=== PATIENT | male | born 1990 | race Caucasian/White ===

== ENCOUNTER 2016-07-24 09:12 | Emergency (ER) | payer OTHER, BC ==
[~2016-07-24] VITALS: Ht 182.9 cm; Wt 140.9 kg
[~2016-07-24 09:12] MED LIST: BACTRIM,SEPT1 TABLET PO; BENADRYL50 MG PO; CITRATE OF MAG296 ML PO; EPIPEN ADU0.3 MG/0.3 IM; KEFLEX500 MG PO; MULTIVITAMIN1 EAC2 PO; NOHOMEMEDS; ONDANSETRON HCL8 MG PO; PEPCID20 MG PO; PERCOCET 5/31 TABLET PO; PREDNISONE20 MG PO
[2016-07-24 10:29] VITALS: BP 146/91
[2016-07-24] MEDS ORDERED: NAPROXEN500 MG PO (11:14)
== END 2016-07-24 11:36 | disposition home or self-care (01) ==
LOC: EME → EDBD 09:12 → EME 09:12
DX: M94.0 Chondrocostal junction syndrome [Tietze] (principal)
CPT/HCPCS: 71020; 93005; 99281; 99283

== ENCOUNTER 2016-12-02 23:01 | Emergency (ER) | payer BC ==
[~2016-12-02] VITALS: Ht 208.3 cm; Wt 140.9 kg
[~2016-12-02 23:01] MED LIST changes: +NAPROXEN500 MG PO
[2016-12-02 23:07] VITALS: BP 133/73
[2016-12-03] MEDS ORDERED: NAPROSYN500 MG PO (00:28)
== END 2016-12-03 00:59 | disposition home or self-care (01) ==
LOC: EME 23:01
DX: M25.561 Pain in right knee (principal)
CPT/HCPCS: 73564; 99281; 99284

== ENCOUNTER 2017-11-02 19:14 | Emergency (ER) | payer BC ==
[~2017-11-02] VITALS: Ht 175.3 cm; Wt 146.9 kg
[~2017-11-02 19:14] MED LIST changes: +NAPROSYN500 MG PO
[2017-11-02 19:59] LABS: BASOPHIL (%) 0.7 % (0-1); BASOPHIL COUNT 0.1 K/uL (0-0.1); EOSINOPHIL (%) 2.6 % (0-5); EOSINOPHIL COUNT 0.2 K/uL (0-0.3); HEMATOCRIT 45.4 % (38.0-50.0); HEMOGLOBIN 15.8 G/DL (12.5-16.6); IMMATURE GRANULOCYTE (%) 0.3 % (0.0-0.7); LYMPHOCYTE (%) 34.4 % (15-42); LYMPHOCYTE COUNT 3.1 K/uL (1.0-2.8); MCH 28.6 PG (29.0-34.0); MCHC 34.8 G/DL (30.0-36.0); MCV 82.1 FL (86-99); MONOCYTE COUNT 0.6 K/uL (0-0.8); NEUTROPHIL COUNT 4.9 K/uL (1.8-6.4); PLATELET COUNT 285 K/uL (156-360); RBC DIS.WIDTH-CV 13.2 % (11.8-14.6); RBC DIS.WIDTH-SD 38.8 % (39-53); RED BLOOD COUNT 5.53 M/uL (4.00-5.50)
[2017-11-02 20:08] LABS: ALBUMIN 4.6 g/dL (3.2-4.8); CHLORIDE 106 mEq/L (99-109); SODIUM 142 mEq/L (136-147)
[2017-11-02 20:10] LABS: GLUCOSE 82 mg/dL (70-99)
[2017-11-02 20:11] LABS: TOTAL PROTEIN 7.6 g/dL (6.4-8.3)
[2017-11-02 20:12] LABS: TOTAL BILIRUBIN 1.8 mg/dL (0.0-1.0)
[2017-11-02 20:14] LABS: ALKALINE PHOSPHATASE 88 IU/L (3-129); CREATININE 0.8 mg/dL (0.6-1.3); GFR ESTIMATE (CALCULATED) > 59 mL/min/ (58.99-99999)
[2017-11-02 20:15] LABS: UREA NITROGEN (BUN) 13 mg/dL (9-23)
[2017-11-02 20:16] LABS: AST (GOT) 21 IU/L (2-34); DIRECT BILIRUBIN 0.5 mg/dL (0.0-0.3)
[2017-11-02 20:17] LABS: ALT (GPT) 29 IU/L (3-49)
[2017-11-02 20:18] LABS: LIPASE 15 U/L (1.0-51.0)
[2017-11-02 20:55] LABS: APPEARANCE SL.HAZY ((CLEAR)); BILIRUBIN NEGATIVE; BLOOD NEGATIVE; COLOR YELLOW ((YELLOW)); GLUCOSE (STRIP) NEGATIVE; KETONES NEGATIVE; LEUKOCYTES NEGATIVE; NITRITE NEGATIVE; PROTEIN (STRIP) 30; SPECIFIC GRAVITY 1.026 (1.000-1.030); UROBILINOGEN 0.2 MG/DL (0.2-1.0)
[2017-11-02 21:44] LABS: BACTERIA NONE SEEN /HPF; EPITHELIAL CELLS NONE SEEN /HPF; MUCUS 3+ /LPF; RED BLOOD CELLS 0-5 /HPF (0-5); WHITE BLOOD CELLS 0-5 /HPF (0-5)
[2017-11-03] MEDS ORDERED: LEXAPRO10 MG PO (01:30)
[2017-11-03] MEDS ORDERED: ONE DAILY MULT1 EACH PO (01:31)
[2017-11-03] MEDS ORDERED: FISH OIL 1,0001 EAC7 PO (01:32)
[2017-11-03] MEDS ORDERED: PROAIR HFA8.5 GM IH (01:33)
[2017-11-03] MEDS ORDERED: PROMETHAZINE HC25 M1 PO (02:45)
[2017-11-03] MEDS ORDERED: PHENERGAN25 MG PR (02:45)
[2017-11-03] MEDS ORDERED: BENTYL20 MG PO (02:45)
[2017-11-03 03:18] VITALS: BP 103/51
== END 2017-11-03 03:18 | disposition home or self-care (01) ==
LOC: EME 19:14
PROVIDERS: Physician Assistant
DX: E80.7 Disorder of bilirubin metabolism, unspecified (principal); R11.2 Nausea with vomiting, unspecified; R10.11 Right upper quadrant pain; K76.0 Fatty (change of) liver, not elsewhere classified; E66.01 Morbid (severe) obesity due to excess calories; Z68.42 Body mass index [BMI] 45.0-49.9, adult; J45.909 Unspecified asthma, uncomplicated; Z87.19 Personal history of other diseases of the digestive system; Z88.8 Allergy status to other drugs, medicaments and biological substances
CPT/HCPCS: 74176; 76705; 80048; 80076; 81003; 83690; 85025; 99281; 99285; J1885; J2405; J2550; J2765; J7030

== ENCOUNTER → 2017-11-09 | Outpatient (CLI) | payer BC ==
[~2017-11-09] MED LIST changes: +BENTYL20 MG PO; +FISH OIL 1,0001 EAC7 PO; +LEXAPRO10 MG PO; +ONE DAILY MULT1 EACH PO; +PHENERGAN25 MG PR; +PROAIR HFA8.5 GM IH; +PROMETHAZINE HC25 M1 PO
== END | disposition home or self-care (01) ==
LOC: NUC 12:53
DX: R10.11 Right upper quadrant pain (principal); R10.816 Epigastric abdominal tenderness; R11.2 Nausea with vomiting, unspecified; K76.0 Fatty (change of) liver, not elsewhere classified
CPT/HCPCS: 78227; A9537; J2805